=== PATIENT | male | born 1945 | race Caucasian/White ===

== ENCOUNTER 2016-08-19 15:40 | Inpatient (IN) | payer OTHER ==
[~2016-08-19] VITALS: Ht 165.1 cm; Wt 66.1 kg
[2016-08-19] VITALS (10 sets, daily range): BP systolic 100–126; BP diastolic 71–82; PULSE 76–105; TEMP 36.8–37.2; O2SAT 90–100; Ht 165.1 cm; Wt 66.1 kg
[~2016-08-19 15:40] MED LIST: ASPEC81 PO; ATOR-24 PO; CLTP PO
[2016-08-19] MEDS ORDERED: NITROGLYCERIN/D5W 100 MCG/ML 500 ML IV STA (15:48)
[2016-08-19] MEDS ORDERED: NITROGLYCERIN/D5W 100 MCG/ML BTL ONE (15:51)
[2016-08-19] MEDS ORDERED: FUROSEMIDE 40 MG/4 ML VIAL IV STA (16:01)
[2016-08-19] MEDS ORDERED: FUROSEMIDE 40 MG/4 ML VIAL ONE (16:02)
--- NOTE | 2016-08-19 16:08 | EMERGENCY ROOM VISIT NOTE ---
History Report prepared by Jaimeibgabrielle: Sebastián Lowe Under the Supervision of: Dr. Savannah Marroquin M.D. First contact with patient: 15:41 Chief Complaint: ALTERED MENTAL STATUS Stated Complaint: AMS, SOB, History of Present Illness The patient is a 71 year old male who presents to the Emergency Room with acute altered mental status that started over 30 minutes prior to arrival. The patient reportedly became altered when he was kayaking, per EMS. He was also short of breath but denies chest pain. Per EMS, the patient was hypoxic and tachycardic en route to the ED. He was started on CPAP. The patient was also started on a Nitro IV drip. EMS notes that the patient was pale, diaphoretic, and cold to touch. The patient reports that he had a previous heart attack and bypass. The patient's states that he appeared fine this morning. She confirms that he had a laparoscopic CABG in [address] [facility]. She does not believe that the patient had a valve replacement. She states that he does not have history of CHF, stroke, or diabetes. Source of History: patient, spouse/significant other, EMS Onset: more than 30 minutes DIRECTOR MUSIC Position: other (global) Quality: other (altered mental status) Timing: other (acute) Associated Symptoms: + diaphoresis, + SOB, No chest pain Review of Systems See HPI for pertinent positives & negatives. A total of 10 systems reviewed and were otherwise negative. Past Medical & Surgical Medical Problems: (1) Ankle fracture (2) SOB (shortness of breath) Family History No pertinent family history Social History Marital Status: Housing Status: lives with family Occupation Status: retired Current/Historical Medications Scheduled Aspirin (Aspirin), 325 MG PO DAILY Atorvastatin (Lipitor), 80 MG PO QPM Cholecalciferol (Vitamin D), 1,000 UNITS PO DAILY Imiquimod (Imiquimod), 1 APPLN TOP UD Lisinopril (Zestril), 10 MG PO QPM Metoprolol Succ (Toprol Xl) (Toprol-Xl ), 100 MG PO DAILY Multiple Vitamin (Multivitamin), 1 TAB PO DAILY Mupirocin 2% (Bactroban 2%), 1 APPLN EXT TID [place]-3 Fatty Acids (Fish Oil), 1,000 MG PO AMPM Allergies Coded Allergies: No Known Allergies (Unverified , 12/08/09) Physical Exam Vital Signs Date Time Temp Pulse Resp B/P (MAP) Pulse Ox O2 Delivery O2 Flow Rate FiO2 08/19/16 16:44 105 33 124/81 99 BiPAP 08/19/16 16:25 110 30 99 08/19/16 16:20 112 37 100 08/19/16 16:15 119 41 100 08/19/16 16:10 117 42 99 08/19/16 16:05 117 33 99 08/19/16 16:00 118 30 98 08/19/16 15:56 131/88 08/19/16 15:55 114 31 97 08/19/16 15:51 120 08/19/16 15:50 118 28 96 08/19/16 15:46 36.5 122 24 137/106 90 CPAP 08/19/16 15:46 90 CPAP 15.0 08/19/16 15:45 137/106 Physical Exam Vital signs reviewed. Noted to be hypertensive and tachycardic. General: Well-appearing male, in no significant distress. HEENT: No scleral icterus, PERRLA, neck supple. Atraumatic. Cardiovascular: Regular rate and rhythm, no extra sounds. Small laparoscopic incision to the suprasternal notch and epigastric region. Pulmonary: On BiPAP, diffuse rhonchi throughout all lung thakur. Abdomen: Soft, nontender, nondistended, positive bowel sounds. Vertical midline incisions to the lower abdomen. Musculoskeletal: Atraumatic, no peripheral edema. Neurologic: Patient awake alert and oriented x 3 Skin: Warm, dry, no rash Medical Decision & Procedures ER Provider Diagnostic Interpretation: X-ray results as stated below per interpretation by me and the radiologist: Radiology results as stated below per my review and radiologist interpretation: CT ANGIOGRAM OF THE CHEST COMBO CLINICAL HISTORY: Dyspnea. COMPARISON STUDY: Chest x-ray dated 08/19/2016. TECHNIQUE: Before and following the IV administration of 115 cc of Optiray 320, CT angiogram of the chest was performed from the thoracic inlet to the upper abdomen utilizing the dissection protocol. Images are reviewed in the axial, sagittal, and coronal planes. 3-D MIPS images are created and assessed. IV contrast was administered without complication. CT DOSE: 277.18 mGy.cm FINDINGS: Thyroid: Atrophic. Thoracic aorta: There is mild atherosclerotic calcification of the thoracic aorta, which is normal in caliber and demonstrates standard 3-vessel arch anatomy. No dissection is seen. Pulmonary vasculature: The pulmonary trunk is normal in caliber. There are no central filling defects identified in the pulmonary vessels to suggest pulmonary embolus. Note that this examination was not specifically protocoled to assess for pulmonary emboli. Heart: The heart is top mildly enlarged and without pericardial effusion. The coronary arteries are densely calcified. Lungs and pleural spaces: The trachea and central airways are clear. There is diffuse/multifocal groundglass consolidation seen throughout both lungs, confluent at the left lung base. There are trace pleural effusions. Mediastinum: There is no mediastinal lymphadenopathy. Kaylen: Clear. Axillae: There is no axillary lymphadenopathy. Upper abdomen: There is mild nodularity of the hepatic surface contour Partially visualized upper abdominal viscera is otherwise within normal limits. Skeletal structures: The skeletal structures are osteopenic. No lytic or blastic bony lesions are seen. IMPRESSION: 1. There is no evidence of pulmonary embolus in the main, lobar, or segmental pulmonary arteries. 2. There is diffuse/multifocal groundglass consolidation seen throughout both lungs which is confluent at the left lung base. This could represent pulmonary edema, multifocal pneumonia, and/or pulmonary hemorrhage. Clinical correlation will be essential and radiographic follow-up to resolution is recommended. 3. Mild cardiac enlargement. 4. Trace pleural effusions. 5. There is mild nodularity of the hepatic surface contour which may represent early change of cirrhosis. 6. Additional findings as above. Electronically signed by: Blayne Perez M.D. 08/19/2016 6:49 PM Dictated Date/Time: 08/19/2016 6:[address] SCAN OF THE BRAIN WITHOUT IV CONTRAST CLINICAL HISTORY: Change in mental status. COMPARISON STUDY: No priors. TECHNIQUE: Unenhanced axial CT scan of the brain is performed from the vertex to the skull base. CT DOSE: 537.48 mGy.cm FINDINGS: Brain parenchyma: There are age-related involutional changes noting mild subcortical and periventricular microangiopathic change. There is no hemorrhage, mass effect, or evidence of acute territorial ischemia by CT criteria. Ramirez-white matter is preserved. No extra-axial fluid collection is seen. Ventricles, sulci, cisterns: Prominent secondary to involutional change. Intracranial vasculature: There is atherosclerotic calcification of the cavernous carotid arteries. Calvarium: Unremarkable. Sinuses and mastoids: The visualized paranasal sinuses are clear. The mastoid air cells are well pneumatized. Orbits: The bony orbits are grossly intact. IMPRESSION: There is no hemorrhage, mass effect, or evidence of acute territorial ischemia by CT criteria. Electronically signed by: Blayne Perez M.D. 08/19/2016 6:40 PM Dictated Date/Time: 08/19/2016 6:38 PM SINGLE VIEW CHEST CLINICAL HISTORY: Dyspnea. Change in mental status. FINDINGS: An AP, portable, upright chest radiograph is obtained. No prior studies are available for comparison at the time of dictation. The examination is degraded by portable technique and patient rotation. The heart is enlarged and there is atherosclerotic calcification of the thoracic aorta. There is pulmonary vascular congestion. Bilateral perihilar airspace opacities are observed. Small pleural effusions are suspected. No pneumothorax is seen. The skeletal structures are osteopenic. The bony thorax is grossly intact. IMPRESSION: 1. Cardiomegaly with evidence of congestive failure. 2. Perihilar airspace opacities likely represent interstitial edema. Correlate clinically for evidence of superimposed pneumonia. Radiographic follow-up to resolution is recommended. Electronically signed by: Blayne Perez M.D. 08/19/2016 4:09 PM Dictated Date/Time: 08/19/2016 4:08 PM Laboratory Results Test 08/19/16 16:00 08/19/16 16:03 08/19/16 16:08 08/19/16 16:10 Immature Granulocyte % (Auto) 0.9 % White Blood Count 8.79 K/uL (4.8-10.8) Red Blood Count 5.48 M/uL (4.7-6.1) Hemoglobin 16.9 g/dL (14.0-18.0) Hematocrit 51.4 % (42-52) Mean Corpuscular Volume 93.8 fL (80-100) Mean Corpuscular Hemoglobin 30.8 pg (25-34) Mean Corpuscular Hemoglobin Concent 32.9 g/dl (32-36) Platelet Count 193 K/uL (130-400) Mean Platelet Volume 12.1 fL (7.4-10.4) Neutrophils (%) (Auto) 65.3 % Lymphocytes (%) (Auto) 24.7 % Monocytes (%) (Auto) 7.2 % Eosinophils (%) (Auto) 1.6 % Basophils (%) (Auto) 0.3 % Neutrophils # (Auto) 5.74 K/uL (1.4-6.5) Lymphocytes # (Auto) 2.17 K/uL (1.2-3.4) Monocytes # (Auto) 0.63 K/uL (0.11-0.59) Eosinophils # (Auto) 0.14 K/uL (0-0.5) Basophils # (Auto) 0.03 K/uL (0-0.2) Immature Granulocyte # (Auto) 0.08 K/uL (0.00-0.02) Bedside Blood Gas pH (LAB) 7.15 (7.35-7.45) Bedside Blood Gas pCO2 (LAB) 51 mmHg (35-46) Bedside Blood Gas pO2 (LAB) 111 mmHg (80-95) Bedside Blood Gas HCO3 (LAB) 18 meq/L (19-24) Bedside Blood Gas Total CO2 19 mEq/l (24-31) Bedside Blood Gas Base Excess (LAB) -11.0 meq/L (-9-1.8) Bedside Blood Gas O2 Saturation 97.0 % (90-95) Total Creatine Kinase U/L (39-308) Bedside Hemoglobin 17.0 g/dl (14.0-18.0) Bedside Hematocrit 50 % (42-52) Bedside Sodium 140 mEq/L (135-144) Bedside Potassium 3.9 mEq/L (3.3-5.0) Bedside Chloride 105 mEq/L (101-112) Bedside Total CO2 20 mEq/l (24-31) Bedside Blood Urea Nitrogen 27 mg/dl (7-18) Bedside Creatinine 1.3 mg/dl (0.6-1.3) Bedside Glucose (other) 206 mg/dl (70-99) Bedside Ionized Calcium (Kermit) 1.27 mmol/l (1.12-1.32) Bedside Troponin I 0.070 ng/ml (0-0.045) IQ-Mos-U-Type Natriuretic Peptide 210 pg/ml (0-900) Bedside Lactic Acid Venous 6.14 mmol/L (0.90-1.70) Date/Time Source Procedure Growth Status 08/19/16 00:00 Nasal MRSA DNA Surveillance Screen - Final Specimen Negative for MRSA by DNA Probe Complete Laboratory results per my review. Medications Administered Medications (Trade) Dose Ordered Sig/Micheal Route Start Time Stop Time Status Last Admin Dose Admin Nitroglycerin/ Dextrose 500 ml @ 5 mls/hr Q24H STAT IV 08/19/16 15:48 08/19/16 19:30 DC 08/19/16 16:15 5 MLS/HR Furosemide (Lasix Inj) 40 mg NOW STAT IV 08/19/16 16:01 08/19/16 16:02 DC 08/19/16 16:12 40 MG Piperacillin Sod/ Tazobactam Sod (Zosyn Iv) 4.5 gm NOW STAT IV 08/19/16 16:24 08/19/16 16:26 DC 08/19/16 16:49 4.5 GM Levofloxacin (Levaquin / D5W) 750 mg NOW ONCE IV 08/19/16 16:30 08/19/16 16:31 DC 08/19/16 16:49 750 MG ECG Indication: altered mental status Rate (beats per minute): 121 Rhythm: sinus tachycardia Findings: no ectopy, other (right axis deviation, no ST elevation, intraventricular conduction delay) Comparison ECG Date: no prior available ED Course 1542: Past medical records reviewed. The patient was evaluated in room A1. A complete history and physical examination was performed. 1548: Nitroglycerin / Dextrose 500 ml @ 5 mls/hr. 1601: Lasix 40 mg IV. 1615: Discussed the case with Dr. Cardoso, [facility] Hospitalist. The patient will be evaluated. 1621: Discussed the case with Dr. Hair, Return To Service Inspector. She is aware of the case. 1800: Past medical records obtained from patient's primary doctor's office. The patient has history of BPH, hypertension, anemia, coronary artery disease, carpal tunnel, left ankle fracture, diverticulosis, hyperlipidemia, and mitral regurgitation. The patient had LBBB on old EKG. Medical Decision Differential diagnosis: Etiologies such as infections, reactive airway disease, pneumonia, pneumothorax , COPD, CHF, cardiac ischemia, pulmonary embolism, musculoskeletal, gastrointestinal, as well as others were entertained. Blood Pressure Screening: Patient was found to have normal blood pressure on screening and does not require follow-up. Medication Reconciliation: I attest that I have personally reviewed the patient' s current medication list. This pt was evaluated and appeared to be critically ill. Pt was on CPAP by EMS and NTG gtt. Pt had significant improvement clinically. CXR was performed and is significant for CHF. IV access was obtained and lab work was drawn. Pt was continued on NTG gtt and placed on BiPAP. EKG reveals a L BBB/intraventricular conduction delay. Trop is mildly elevated. Pt has h/o CABG and LBBB according to records. There is no previous EKG available. The ABG obtained reveals an acidosis with pH of 7.15, pCO2 51, and HCO3 18. Lactate is elevated. CT head is negative, CTA chest is neg for PE, otherwise as above. IV zosyn and levaquin were started, blood cultures pending. Case was d/w Dr Hair of the ICU. Pt was referred to the hospitalist service. Pt and are aware of the plan and agree. Consults Time Called: 1610 Consulting Physician: Dr. Cardoso [facility] Hospitalist Returned Call: 1615 The patient will be evaluated. Additional Consults: Time Called: 1620 Consulted Physician: Dr. Hair, Return To Service Inspector. Returned Call: 1621 Additional Comments: She is aware of the case. Impression Primary Impression: Pulmonary edema Additional Impressions: Lactic acidosis Respiratory acidosis Critical Care I have personally spent greater than 35 minutes of critical care time in the direct management of this patient. This includes bedside care, interpretation of diagnostic studies, and testing, discussion with consultants, patient, and family members, and other required patient management activities. This 35 minutes is in excess of all separately billable procedures. Scribe Attestation The scribe's documentation has been prepared under my direction and personally reviewed by me in its entirety. I confirm that the note above accurately reflects all work, treatment, procedures, and medical decision making performed by me. Departure Information Dispostion Being Evaluated By Hospitalist Referrals No Doctor, Assigned (PCP) Patient Instructions My [facility] Problem Qualifiers Primary Impression: Pulmonary edema Chronicity: acute Qualified Codes: J81.0 - Acute pulmonary edema
[2016-08-19 16:13] LABS: ISTAT ARTERIAL BLOOD GAS HCO3 18 meq/L (19-24); ISTAT ARTERIAL BLOOD GAS PCO2 51 mmHg (35-46); ISTAT ARTERIAL BLOOD GAS PO2 111 mmHg (80-95); ISTAT ARTERIAL BLOOD GAS pH 7.15 (7.35-7.45); ISTAT CARBON DIOXIDE 19 mEq/l (24-31)
[2016-08-19] MEDS ORDERED: INSULIN IV INFUSION PROTOCOL STA (16:19)
[2016-08-19 16:24] LABS: ISTAT CREATININE 1.3 mg/dl (0.6-1.3); ISTAT IONIZED CALCIUM 1.27 mmol/l (1.12-1.32)
[2016-08-19] MEDS ORDERED: PIPERACILLIN/TAZOBACTAM 4.5 GM/100ML D5W IV STA (16:24)
[2016-08-19 16:26] LABS: BASO % 0.3 %; BASO ABS # 0.03 K/uL (0-0.2); COMPLETE YES; EOS % 1.6 %; HEMATOCRIT 51.4 % (42-52); IG% 0.9 %; LYMPH % 24.7 %; LYMPH ABS # 2.17 K/uL (1.2-3.4); MEAN CELL VOLUME 93.8 fL (80-100); MEAN CORPUSCULAR HEMOGLOBIN 30.8 pg (25-34); MEAN CORPUSCULAR HGB CONC 32.9 g/dl (32-36); MEAN PLATELET VOLUME 12.1 fL (7.4-10.4); MONO % 7.2 %; NEUT % 65.3 %; PLATELET COUNT 193 K/uL (130-400); RED BLOOD COUNT 5.48 M/uL (4.7-6.1); WHITE BLOOD COUNT 8.79 K/uL (4.8-10.8)
[2016-08-19 16:28] LABS: POINT OF CARE TROPONIN I 0.07 ng/ml (0-0.045)
[2016-08-19] MEDS ORDERED: HEPARIN SOD 5000 UNIT/0.5 ML CARP SQ SCH (16:30)
[2016-08-19] MEDS ORDERED: ACETAMINOPHEN 325 MG TAB PO PRN (16:30)
[2016-08-19] MEDS ORDERED: ALBUT/IPRATROP 3MG/0.5MG NEB 3 ML VIAL INH PRN (16:30)
[2016-08-19] MEDS ORDERED: LEVAQUIN 750MG / 150ML D5W IV ONE (16:30)
[2016-08-19 16:54] LABS: ALKALINE PHOSPHATASE 192 U/L (45-117); ALT/SGPT 118 U/L (12-78); BLOOD UREA NITROGEN 26 mg/dl (7-18); BUN/CREATININE RATIO 17.3 (10-20); CALCIUM 9.4 mg/dl (8.5-10.1); CARBON DIOXIDE 21 mmol/L (21-32); CHLORIDE 106 mmol/L (98-107); GLUCOSE 189 mg/dl (70-99); SODIUM 141 mmol/L (136-145)
[2016-08-19] MEDS ORDERED: ONDANSETRON INJ 2 MG/ML 2 ML VIAL IV PRN (17:30)
[2016-08-19] MEDS ORDERED: CHOL100010 PO (17:32)
[2016-08-19] MEDS ORDERED: BCTCR/30 EXT (17:32)
[2016-08-19] MEDS ORDERED: VANCOMYCIN CONSULT ACTIVE PRN (17:32)
[2016-08-19] MEDS ORDERED: ATOR-26 PO (17:32)
[2016-08-19] MEDS ORDERED: DXY100 PO (17:32)
[2016-08-19] MEDS ORDERED: ASPI325T45 PO (17:32)
[2016-08-19] MEDS ORDERED: OMEG10002 PO (17:32)
[2016-08-19] MEDS ORDERED: MULTTAB58 PO (17:32)
[2016-08-19] MEDS ORDERED: METO1TAB69 PO (17:32)
[2016-08-19] MEDS ORDERED: LISI-461 PO (17:32)
[2016-08-19] MEDS ORDERED: IMIQ0.00 TOP (17:32)
[2016-08-19] MEDS ORDERED: GLUCAGON FOR INJ 1 MG VIAL SQ PRN (17:45)
[2016-08-19] MEDS ORDERED: DOXYCYCLINE PHARMACY CONSULT IN PROGRESS PRN (17:45)
[2016-08-19] MEDS ORDERED: GLUCOSE 40% GEL 15 GM TUBE PO PRN (17:45)
[2016-08-19] MEDS ORDERED: DEXTROSE 50% 50 ML SYR IV PRN (17:45)
[2016-08-19] MEDS ORDERED: PHARMACY GLYCEMIC MGMT CONSULT PRN (17:45)
[2016-08-19] MEDS ORDERED: GLUCOSE 10 TABS/TUBE PO PRN (17:45)
[2016-08-19] MEDS ORDERED: PIPERACILL/TAZOBAC CONSULT ACTIVE PRN (17:45)
--- NOTE | 2016-08-19 17:46 | History and Physical ---
History & Physical Date & Time of Service: Aug 19, 2016 at 17:35 Chief Complaint: Ams, Sob, Primary Care Physician: No Doctor, Assigned History of Present Illness Source: patient, family Patient is a 71 yr male with PMH of CAD S/P ? CABG (in 2013), HLP, HTN presents for evaluation of Altered mental status and SOB. Patient reports he is doing well until this morning and developed sudden onset of shortness of breath and cough associated with Altered mental status while he was kayaking. EMS found him to be hypoxic and tachycardic/Hypertensive and started him on NTG drip and CPAP enroute to the hospital. EMS also noted the patient to be pale, diaphoretic , and cold to touch. Patient reports he developed sudden onset of SOB and a "foamy" cough. Also reports transient slurry of speech and stumbled to walk per family. He denies any history of chest pain/discomfort, fever, chills, palpitations, dizziness, nausea, vomiting, abd pain, change in bowel/bladder habits, history of LOC, fall, trauma, headache, blurry vision, weakness, numbness, tingling, seizure like activity, incontinence. Also denies any cough prior to today or similar episode previously. CXR was suggestive of CHF, interstitial edema and possible pneumonia. Lactic acid is elevated. Past Medical/Surgical History Medical Problems: (1) Ankle fracture Status: Resolved PAST SURGICAL HISTORY: ? CABG, Appendectomy Family History No pertinent family history Mother and Father: Heart disease Social History Smoking Status: Never Smoker Alcohol Use: socially Drug Use: none Marital Status: Allergies Coded Allergies: No Known Allergies (Unverified , 12/08/09) Home Medications Scheduled Aspirin (Aspirin), 325 MG PO DAILY Atorvastatin (Lipitor), 80 MG PO QPM Cholecalciferol (Vitamin D), 1,000 UNITS PO DAILY Imiquimod (Imiquimod), 1 APPLN TOP UD Lisinopril (Zestril), 10 MG PO QPM Metoprolol Succ (Toprol Xl) (Toprol-Xl ), 100 MG PO DAILY Multiple Vitamin (Multivitamin), 1 TAB PO DAILY Mupirocin 2% (Bactroban 2%), 1 APPLN EXT TID [place]-3 Fatty Acids (Fish Oil), 1,000 MG PO AMPM Review of Systems See HPI for pertinent positives & negatives. A total of 10 systems reviewed and were otherwise negative. Physical Exam Vital Signs Date Time Temp Pulse Resp B/P (MAP) Pulse Ox O2 Delivery O2 Flow Rate FiO2 08/19/16 16:44 105 33 124/81 99 BiPAP 08/19/16 16:25 110 30 99 08/19/16 16:20 112 37 100 08/19/16 16:15 119 41 100 08/19/16 16:10 117 42 99 08/19/16 16:05 117 33 99 08/19/16 16:00 118 30 98 08/19/16 15:56 131/88 08/19/16 15:55 114 31 97 08/19/16 15:51 120 08/19/16 15:50 118 28 96 08/19/16 15:46 36.5 122 24 137/106 90 CPAP 08/19/16 15:46 90 CPAP 15.0 08/19/16 15:45 137/106 General Appearance: WD/WN, no apparent distress Head: normocephalic, atraumatic Eyes: normal inspection, PERRL, EOMI, sclerae normal ENT: normal ENT inspection, hearing grossly normal Neck: supple, trachea midline Respiratory/Chest: chest non-tender, no accessory muscle use, + rales Cardiovascular: regular rate, rhythm, no murmur, + tachycardia Abdomen/GI: normal bowel sounds, non tender, soft Back: normal inspection Extremities/Musculoskelatal: normal inspection, no pedal edema Neurologic/Psych: caul dresser II-XII nml as tested, no motor/sensory deficits, alert, normal mood/affect, oriented x 3 Skin: normal color, warm/dry Diagnostics Laboratory Results Results Past 24 Hours Test 08/19/16 15:58 08/19/16 16:00 08/19/16 16:03 08/19/16 16:08 Range/Units Bedside Lactic Acid Venous 7.12 0.90-1.70 mmol/L White Blood Count 8.79 4.8-10.8 K/uL Red Blood Count 5.48 4.7-6.1 M/uL Hemoglobin 16.9 14.0-18.0 g/dL Hematocrit 51.4 42-52 % Mean Corpuscular Volume 93.8 80-100 fL Mean Corpuscular Hemoglobin 30.8 25-34 pg Mean Corpuscular Hemoglobin Concent 32.9 32-36 g/dl Platelet Count 193 130-400 K/uL Mean Platelet Volume 12.1 7.4-10.4 fL Neutrophils (%) (Auto) 65.3 % Lymphocytes (%) (Auto) 24.7 % Monocytes (%) (Auto) 7.2 % Eosinophils (%) (Auto) 1.6 % Basophils (%) (Auto) 0.3 % Neutrophils # (Auto) 5.74 1.4-6.5 K/uL Lymphocytes # (Auto) 2.17 1.2-3.4 K/uL Monocytes # (Auto) 0.63 0.11-0.59 K/uL Eosinophils # (Auto) 0.14 0-0.5 K/uL Basophils # (Auto) 0.03 0-0.2 K/uL RDW Standard Deviation 44.1 36.4-46.3 fL RDW Coefficient of Variation 12.8 11.5-14.5 % Immature Granulocyte % (Auto) 0.9 % Immature Granulocyte # (Auto) 0.08 0.00-0.02 K/uL Bedside Blood Gas pH (LAB) 7.15 7.35-7.45 Bedside Blood Gas pCO2 (LAB) 51 35-46 mmHg Bedside Blood Gas pO2 (LAB) 111 80-95 mmHg Bedside Blood Gas HCO3 (LAB) 18 19-24 meq/L Bedside Blood Gas Total CO2 19 24-31 mEq/l Bedside Blood Gas Base Excess (LAB) -11.0 -9-1.8 meq/L Bedside Blood Gas O2 Saturation 97.0 90-95 % Sodium Level 141 136-145 mmol/L Potassium Level 3.5-5.1 mmol/L Chloride Level 106 98-107 mmol/L Carbon Dioxide Level 21 21-32 mmol/L Anion Gap 14.0 19.0 16-25 mmol/L Blood Urea Nitrogen 26 7-18 mg/dl Creatinine 1.50 0.60-1.40 mg/dl Est Creatinine Clear Calc Drug Dose 46.7 ml/min Estimated GFR () 53.5 Estimated GFR (Non- 46.2 BUN/Creatinine Ratio 17.3 10-20 Random Glucose 189 70-99 mg/dl Calcium Level 9.4 8.5-10.1 mg/dl Magnesium Level 1.8-2.4 mg/dl Total Bilirubin 0.5 0.2-1 mg/dl Direct Bilirubin 0-0.2 mg/dl Aspartate Amino Transf (AST/SGOT) 15-37 U/L Alanine Aminotransferase (ALT/SGPT) 118 12-78 U/L Alkaline Phosphatase 192 45-117 U/L Total Creatine Kinase 39-308 U/L Creatine Kinase MB 2.9 0.5-3.6 ng/ml Creatine Kinase MB Ratio 0-3.0 Total Protein 7.8 6.4-8.2 gm/dl Albumin 3.9 3.4-5.0 gm/dl Bedside Hemoglobin 17.0 14.0-18.0 g/dl Bedside Hematocrit 50 42-52 % Bedside Sodium 140 135-144 mEq/L Bedside Potassium 3.9 3.3-5.0 mEq/L Bedside Chloride 105 101-112 mEq/L Bedside Total CO2 20 24-31 mEq/l Bedside Blood Urea Nitrogen 27 7-18 mg/dl Bedside Creatinine 1.3 0.6-1.3 mg/dl Bedside Glucose (other) 206 70-99 mg/dl Bedside Ionized Calcium (Kermit) 1.27 1.12-1.32 mmol/l Bedside Troponin I 0.070 0-0.045 ng/ml ER-Ivf-X-Type Natriuretic Peptide 210 0-900 pg/ml Test 08/19/16 16:10 Range/Units Bedside Lactic Acid Venous 6.14 0.90-1.70 mmol/L Microbiology Results 08/19/16 Blood Culture, Received Pending 08/19/16 Blood Culture, Aminta Batch Pending Diagnostic Radiology CTA: 1. There is no evidence of pulmonary embolus in the main, lobar, or segmental pulmonary arteries. 2. There is diffuse/multifocal groundglass consolidation seen throughout both lungs which is confluent at the left lung base. This could represent pulmonary edema, multifocal pneumonia, and/or pulmonary hemorrhage. Clinical correlation will be essential and radiographic follow-up to resolution is recommended. 3. Mild cardiac enlargement. 4. Trace pleural effusions. 5. There is mild nodularity of the hepatic surface contour which may represent early change of cirrhosis. 6. Additional findings as above. CT head: There is no hemorrhage, mass effect, or evidence of acute territorial ischemia by CT criteria. EKG EKG:Sinus tachycardia, left atrial enlargement, intraventricular conduction delay, no acute ischemic changes. Impression Assessment and Plan Acute hypoxemic respiratory failure: Likely secondary to Pulmonary edema, ? Multifocal pneumonia, ACS CTA: negative for PE Continue BiPAP support Will consult Tree Trimmer and Pulmonary on NTG drip, also to help Hypertensive urgency (started en route to Hosp) Start broad spectrum antibiotics Duonebs PRN ABG in AM Could have underlying cardiac issues: check ECHO, trend cardiac enzymes Plan to start Heparin infusion and cardiology consult if complains of chest pain /cardiac enzymes trend up Trend lactate levels Follow up cultures Received Lasix in ED Hypertensive Urgency: Now controlled on NTG drip Monitor Hyperglycemia: No history of diabetes per patient Check A1C ISS, accu checks ? transient slurred speech and altered mental status: Currently at baseline mental status No focal deficits on exam CT : no acute pathology Neuro checks H/O CAD S/P minimally invasive coronary artery bypass grafting surgery 2013 Denies chest pain Trend cardiac enzymes continue home meds H/O hyperlipidemia Continue statins DVT PX: Heparin SQ Disposition: Monitor in ICU VTE Prophylaxis VTE Risk Assessment Done? Y/N: Yes Risk Level: Low
[2016-08-19] MEDS ORDERED: NURSING VERBAL MED ORDER ONE (18:00)
[2016-08-19] MEDS: INSULIN ASPART 100 UNITS/ML 3 ML PEN SC SCH (18:00)
[2016-08-19] MEDS ORDERED: VANCOMYCIN INJ 2,000 MG in SODIUM CHLORIDE 0.9% 500ML 500 ML IV SCH (18:00)
--- NOTE | 2016-08-19 18:41 | DIAGNOSTIC IMAGING REPORT ---
CT SCAN OF THE BRAIN WITHOUT IV CONTRAST CLINICAL HISTORY: Change in mental status. COMPARISON STUDY: No priors. TECHNIQUE: Unenhanced axial CT scan of the brain is performed from the vertex to the skull base. CT DOSE: 537.48 mGy.cm FINDINGS: Brain parenchyma: There are age-related involutional changes noting mild subcortical and periventricular microangiopathic change. There is no hemorrhage, mass effect, or evidence of acute territorial ischemia by CT criteria. Ramirez-white matter is preserved. No extra-axial fluid collection is seen. Ventricles, sulci, cisterns: Prominent secondary to involutional change. Intracranial vasculature: There is atherosclerotic calcification of the cavernous carotid arteries. Calvarium: Unremarkable. Sinuses and mastoids: The visualized paranasal sinuses are clear. The mastoid air cells are well pneumatized. Orbits: The bony orbits are grossly intact. IMPRESSION: There is no hemorrhage, mass effect, or evidence of acute territorial ischemia by CT criteria. Electronically signed by: Blayne Perez M.D. 08/19/2016 6:40 PM Dictated Date/Time: 08/19/2016 6:38 PM
[2016-08-19] MEDS ORDERED: OPTIRAY 320 IV PRN (18:45)
--- NOTE | 2016-08-19 18:50 | DIAGNOSTIC IMAGING REPORT ---
CT ANGIOGRAM OF THE CHEST COMBO CLINICAL HISTORY: Dyspnea. COMPARISON STUDY: Chest x-ray dated 08/19/2016. TECHNIQUE: Before and following the IV administration of 115 cc of Optiray 320, CT angiogram of the chest was performed from the thoracic inlet to the upper abdomen utilizing the dissection protocol. Images are reviewed in the axial, sagittal, and coronal planes. 3-D MIPS images are created and assessed. IV contrast was administered without complication. CT DOSE: 277.18 mGy.cm FINDINGS: Thyroid: Atrophic. Thoracic aorta: There is mild atherosclerotic calcification of the thoracic aorta, which is normal in caliber and demonstrates standard 3-vessel arch anatomy. No dissection is seen. Pulmonary vasculature: The pulmonary trunk is normal in caliber. There are no central filling defects identified in the pulmonary vessels to suggest pulmonary embolus. Note that this examination was not specifically protocoled to assess for pulmonary emboli. Heart: The heart is top mildly enlarged and without pericardial effusion. The coronary arteries are densely calcified. Lungs and pleural spaces: The trachea and central airways are clear. There is diffuse/multifocal groundglass consolidation seen throughout both lungs, confluent at the left lung base. There are trace pleural effusions. Mediastinum: There is no mediastinal lymphadenopathy. Kaylen: Clear. Axillae: There is no axillary lymphadenopathy. Upper abdomen: There is mild nodularity of the hepatic surface contour Partially visualized upper abdominal viscera is otherwise within normal limits. Skeletal structures: The skeletal structures are osteopenic. No lytic or blastic bony lesions are seen. IMPRESSION: 1. There is no evidence of pulmonary embolus in the main, lobar, or segmental pulmonary arteries. 2. There is diffuse/multifocal groundglass consolidation seen throughout both lungs which is confluent at the left lung base. This could represent pulmonary edema, multifocal pneumonia, and/or pulmonary hemorrhage. Clinical correlation will be essential and radiographic follow-up to resolution is recommended. 3. Mild cardiac enlargement. 4. Trace pleural effusions. 5. There is mild nodularity of the hepatic surface contour which may represent early change of cirrhosis. 6. Additional findings as above. Electronically signed by: Blayne Perez M.D. 08/19/2016 6:49 PM Dictated Date/Time: 08/19/2016 6:42 PM
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
[2016-08-19] MEDS ORDERED: MoRPHine SULFATE 2 MG/ML CARP IV PRN (19:30)
--- NOTE | 2016-08-19 19:53 | Pharmacy Progress Note ---
Pharmacy Abx Initial Consult Date of Service Aug 19, 2016. Pharmacy Dosing Scope Date of Consult: 08/19/16 Consultation requested by: Dr. Cardoso Pharmacy is consulted to initiate vancomycin and piperacillin/tazobactam IV dosing therapy, order appropriate labs and adjust drug dose/frequency. Subjective The patient is a 71 year old male admitted on Aug 19, 2016 at 17:15. Objective Height (Feet): 5 Height (Inches): 5.00 Weight (Kilograms): 90.300 Vital Signs (Past 12Hrs) Vital Signs Past 12 Hours Date Time Temp Pulse Resp B/P (MAP) Pulse Ox O2 Delivery O2 Flow Rate FiO2 08/19/16 19:07 105 100 60 08/19/16 18:49 37.2 94 22 119/82 100 BiPAP 08/19/16 18:00 95 28 115/82 99 Room Air 08/19/16 17:20 90 90 08/19/16 16:44 105 33 124/81 99 BiPAP 08/19/16 16:25 110 30 99 08/19/16 16:20 112 37 100 08/19/16 16:15 119 41 100 08/19/16 16:10 117 42 99 08/19/16 16:05 117 33 99 08/19/16 16:00 118 30 98 08/19/16 15:56 131/88 08/19/16 15:55 114 31 97 08/19/16 15:51 120 08/19/16 15:50 118 28 96 08/19/16 15:46 36.5 122 24 137/106 90 CPAP 08/19/16 15:46 90 CPAP 15.0 08/19/16 15:45 137/106 Lab Results (24Hrs) Laboratory Tests (24 Hours) Test 08/19/16 16:00 08/19/16 17:10 White Blood Count 8.79 K/uL (4.8-10.8) Red Blood Count 5.48 M/uL (4.7-6.1) Hemoglobin 16.9 g/dL (14.0-18.0) Hematocrit 51.4 % (42-52) Mean Corpuscular Volume 93.8 fL (80-100) Mean Corpuscular Hemoglobin 30.8 pg (25-34) Mean Corpuscular Hemoglobin Concent 32.9 g/dl (32-36) Platelet Count 193 K/uL (130-400) Mean Platelet Volume 12.1 fL (7.4-10.4) H Neutrophils (%) (Auto) 65.3 % Lymphocytes (%) (Auto) 24.7 % Monocytes (%) (Auto) 7.2 % Eosinophils (%) (Auto) 1.6 % Basophils (%) (Auto) 0.3 % Neutrophils # (Auto) 5.74 K/uL (1.4-6.5) Lymphocytes # (Auto) 2.17 K/uL (1.2-3.4) Monocytes # (Auto) 0.63 K/uL (0.11-0.59) H Eosinophils # (Auto) 0.14 K/uL (0-0.5) Basophils # (Auto) 0.03 K/uL (0-0.2) Total Creatine Kinase U/L (39-308) Procalcitonin 0.19 ng/ml (0-0.5) Item Value Date Time Bedside Lactic Acid Venous 6.14 mmol/L H 08/19/16 1610 Bedside Lactic Acid Venous 7.12 mmol/L H 08/19/16 1558 Est Creatinine Clear Calc Drug Dose 46.7 ml/min 08/19/16 1600 Creatinine 1.50 mg/dl H 08/19/16 1600 Micro Results Date/Time Source Procedure Growth Status 08/19/16 17:59 Blood Blood Culture Pending Received 08/19/16 16:00 Blood Blood Culture Pending Received 08/19/16 00:00 Nasal MRSA DNA Surveillance Screen Pending Received Risk Factors for Resistance * Antimicrobial use within the last 90 days * doxycycline 3-4 weeks ago for tick bite Assessment & Plan Assessment * 71 year old male [place] and becoming short of breath and having changes in mental status * Levofloxacin and piperacillin/tazobactam given in ED * Lactic acid elevated on admission; procalcitonin, WBC, neutrophils WNL Plan * Broad-spectrum antibiotics for treatment of possible pneumonia Vancomycin IV * Loading dose: 2000 mg (22 mg/kg) * Random level 08/20/16 in AM * Serum creatinine likely elevated above baseline. * This, in addition to piperacillin/tazobactam as well as IV contrast dye, is concerning for additional renal dysfunctions - would like to assess renal function in AM prior to scheduling maintenance dose. * MRSA nasal swab pending Piperacillin/tazobactam * 4.5 g bolus administered over 30 minutes, then 4.5 g IV extended infusion every 8 hours for CrCl greater than 20 mL/min O * Aggressive dosing selected due to critically ill status Pharmacy will continue to follow and will adjust dose/frequency as necessary. Thank you.
--- NOTE | 2016-08-19 19:59 | Pharmacy Progress Note ---
Glycemic Control Intl Consult Date of Service Aug 19, 2016. Scope Glycemic Pharmacist consulted by Dr Cardoso on for glycemic control and to write orders per [facility] inpatient glycemic control protocol Objective Weight (Kilograms): 90.300 Accuchecks BSG (last 24hrs): Test 08/19/16 16:00 Random Glucose 189 mg/dl (70-99) Laboratory Data (last 24hrs) Test 08/19/16 16:00 08/19/16 16:03 Anion Gap 14.0 mmol/L 19.0 mmol/L BUN/Creatinine Ratio 17.3 Blood Urea Nitrogen 26 mg/dl Creatinine 1.50 mg/dl Potassium Level mmol/L Sodium Level 141 mmol/L White Blood Count 8.79 K/uL Red Blood Count 5.48 M/uL Hemoglobin 16.9 g/dL Hematocrit 51.4 % Mean Corpuscular Volume 93.8 fL Mean Corpuscular Hemoglobin 30.8 pg Mean Corpuscular Hemoglobin Concent 32.9 g/dl Platelet Count 193 K/uL Mean Platelet Volume 12.1 fL Neutrophils (%) (Auto) 65.3 % Lymphocytes (%) (Auto) 24.7 % Monocytes (%) (Auto) 7.2 % Eosinophils (%) (Auto) 1.6 % Basophils (%) (Auto) 0.3 % Neutrophils # (Auto) 5.74 K/uL Lymphocytes # (Auto) 2.17 K/uL Monocytes # (Auto) 0.63 K/uL Eosinophils # (Auto) 0.14 K/uL Basophils # (Auto) 0.03 K/uL Recent Pertinent Medications Outpatient Anti-diabetic Regimen: * none prior to admission * A1c is unknown at time of consult The patient is currently receiving: * nothing Risk Factors for Insulin Resistance: * Infection: presumed pneumonia - vancomycin and piperacillin/tazobactam IV * Diet: NPO except medications Assessment & Plan ASSESSMENT: * ADA & AACE recommend a goal blood sugar range 140-180 mg/dl for the majority of critically ill & non-critically ill patients. * No history of diabetes, however BSG elevated on admission (secondary to physiologic stress vs undiagnosed dx?) * familial history of DM * begin NovoLog correctional insulin at this time (based on weight and a stress of 2), forgo basal insulin unless sustained hyperglycemia occurs * A1c ordered with AM labs on7/3/17 PLAN FOR INPATIENT GLYCEMIC CONTROL: * Basal insulin: * hold at this time * Bolus insulin: * NovoLog SQ every 6 hours - Correction factor: 25mg/dL/unit - Carb ratio: 1 unit per 9 g of CHO consumed - Goal range: 140-180mg/dL * A1c - with AM labs * added to discharge instructions * Please note that the plan above was derived based on current level of insulin resistance and hospital stress. These recommendations are appropriate for inpatient admission only. Plan of care upon discharge will need to be reassessed to avoid potential outpatient hypo/hyperglycemia. Thank you.
[2016-08-19] MEDS ORDERED: DOXYCYCLINE HYCLATE 100 MG in DEXTROSE 5% 100ML IV SCH (20:00)
[2016-08-19 20:34] LABS: INR 1.1 (0.9-1.1); PARTIAL THROMBOPLASTIN RATIO 0.9; PROTHROMBIN TIME (PATIENT) 11.5 SECONDS (9.0-12.0)
[2016-08-19] MEDS ORDERED: HEPARIN 25,000 UNIT/500ML D5W 500 ML IV PRN (20:45)
[2016-08-19] MEDS ORDERED: LISINOPRIL 10 MG TAB PO SCH (21:00)
[2016-08-19] MEDS: PIPERACILL/TAZOBAC IV 4.5 GM in DEXTROSE 5% 100ML IV SCH (21:42)
[2016-08-19 22:33] LABS: BLOOD UREA NITROGEN 27 mg/dl (7-18); BUN/CREATININE RATIO 24.5 (10-20); CALCIUM 9.2 mg/dl (8.5-10.1); CARBON DIOXIDE 22 mmol/L (21-32); CHLORIDE 106 mmol/L (98-107); GLUCOSE 115 mg/dl (70-99); SODIUM 139 mmol/L (136-145)
[2016-08-19 22:41] LABS: PHOSPHORUS 3.2 mg/dl (2.5-4.9)
[2016-08-20] VITALS (40 sets, daily range): BP systolic 112–165; BP diastolic 69–92; PULSE 61–82; TEMP 36.4–36.8; O2SAT 93–100
[2016-08-20] MEDS: METOPROLOL TARTRATE 1 MG/ML VIAL IV. SCH ×2 (00:16→06:09)
[2016-08-20 01:06] LABS: URINE APPEARANCE CLEAR (CLEAR); URINE BILIRUBIN NEG (NEG); URINE COLOR YELLOW; URINE NITRITE NEG (NEG); URINE SPECIFIC GRAVITY 1.035 (1.000-1.030); UROBILINOGEN NEG (NEG)
[2016-08-20 01:12] LABS: MANUAL MICROSCOPIC REQUIRED? NO; REVIEW REQ? NO
[2016-08-20] MEDS ORDERED: NITROGLYCERIN/D5W 100 MCG/ML 250 ML IV SCH (01:15)
[2016-08-20] MEDS: INSULIN ASPART 100 UNITS/ML 3 ML PEN SC SCH ×5 (06:00→21:00)
[2016-08-20 06:06] LABS: HEMATOCRIT 42.3 % (42-52); MEAN CELL VOLUME 91.8 fL (80-100); MEAN CORPUSCULAR HEMOGLOBIN 32.5 pg (25-34); MEAN CORPUSCULAR HGB CONC 35.5 g/dl (32-36); MEAN PLATELET VOLUME 12.1 fL (7.4-10.4); PLATELET COUNT 153 K/uL (130-400); RED BLOOD COUNT 4.61 M/uL (4.7-6.1); WHITE BLOOD COUNT 12.12 K/uL (4.8-10.8)
[2016-08-20] MEDS: PIPERACILL/TAZOBAC IV 4.5 GM in DEXTROSE 5% 100ML IV SCH (06:08)
[2016-08-20 06:12] LABS: PARTIAL THROMBOPLASTIN RATIO 1.9
[2016-08-20 06:47] LABS: COMPLETE YES; LYMPH ABS # 1.16 K/uL (1.2-3.4); LYMPHOCYTE % 9.6 %; NEUTROPHILS % 78.2 %
[2016-08-20 07:04] LABS: BLOOD UREA NITROGEN 23 mg/dl (7-18); BUN/CREATININE RATIO 21.1 (10-20); CALCIUM 9.1 mg/dl (8.5-10.1); CARBON DIOXIDE 21 mmol/L (21-32); CHLORIDE 108 mmol/L (98-107); GLUCOSE 117 mg/dl (70-99)
[2016-08-20 07:11] LABS: POTASSIUM 4.1 mmol/L (3.5-5.1); SODIUM 142 mmol/L (136-145)
--- NOTE | 2016-08-20 07:11 | DIAGNOSTIC IMAGING REPORT ---
CHEST ONE VIEW PORTABLE CLINICAL HISTORY: f/u infiltrates pneumonia COMPARISON STUDY: 08/19/2016 FINDINGS: Improving components of congestive failure and/or interstitial edema. Mild decrease in cardiac size. Diaphragms are smooth. IMPRESSION: Improving congestive failure Electronically signed by: Bebo Salazar M.D. 08/20/2016 7:10 AM Dictated Date/Time: 08/20/2016 7:09 AM
[2016-08-20 07:59] LABS: ESTIMATED AVERAGE GLUCOSE 126 mg/dl; HA1C FLAG Normal (Normal)
[2016-08-20] MEDS: ASPIRIN 81 MG ECTAB PO SCH (08:13)
[2016-08-20] MEDS: ATORVASTATIN 40 MG TAB PO SCH (08:14)
[2016-08-20] MEDS: METOPROLOL SUCC 50MG EXT REL TAB PO SCH (08:14)
[2016-08-20] MEDS ORDERED: SODIUM CHLORIDE 0.9% 1000ML 1,000 ML IV SCH ×2 (09:00→14:33)
[2016-08-20] MEDS ORDERED: DC ALL ANTICOAGULANTS ONE (09:00)
[2016-08-20] MEDS ORDERED: METOPROLOL SUCC 50MG EXT REL TAB PO SCH (09:00)
--- NOTE | 2016-08-20 09:30 | Cardiology Consultation ---
Cardiology Consultation Date of Consultation: Aug 20, 2016 Requesting Physician: DATA Attending [employer]: Angel History of Present Illness Patient is a 71 year old male from [place], [place]. Admitted with Pulmonary Edema due to heart failure. History of minimally invasive CABG 2003 in [place]. ? single vessel. ?PUENTE to the LAD. EKG with old LBBB. Non STEMI by enzymes. Currently pain free. Feeling much improved after night of bipap and diuresis. Will need heart cath. 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 History Past Medical History: CABG 2003 No diabetes, kidney disease or strokes Social History: nonsmoker, retired and Family History: Brother with early heart disease Past Medical/Surgical History Problem List: Medical Problems: (1) Ankle fracture (2) SOB (shortness of breath) Review Of Systems General: The patient denies weight change, night sweats, fever, chills. Head: The patient denies headache and prior head trauma. Cardiovascular: The patient denies chest pain or chest discomfort, dyspnea on exertion, palpitations, PND, orthopnea, edema, spontaneous shortness of breath, syncope and near syncope. Pulmonary: The patient denies cough, wheeze, pleurisy, hemoptysis, sputum, and excessive snoring. Gastrointestinal: The patient denies nausea, vomiting, diarrhea, constipation, bloating, hematemesis, hematochezia, and abdominal pain. Skin: The patient denies diaphoresis and rash. Musculoskeletal: The patient denies joint pain, joint swelling, myalgia, back pain, neck pain and prior injuries. Neurological: The patient denies prior stroke and seizures Allergies Coded Allergies: No Known Allergies (Unverified , 12/08/09) Medications Reported Home Medications Medications Dose Route/Sig Max Daily Dose Days Date Category Vitamin D (Cholecalciferol) 1,000 Unit Tab 1,000 Units PO DAILY 08/19/16 Reported Bactroban 2% (Mupirocin) 30 Gm Cr 1 Appln EXT TID 08/19/16 Reported Multivitamin (Multiple Vitamin) 1 Tab Tab 1 Tab PO DAILY 08/19/16 Reported Toprol-Xl (Metoprolol Succinate) 100 Mg Tabcr 100 Mg PO DAILY 08/19/16 Reported Zestril (Lisinopril) 10 Mg Tab 10 Mg PO QPM 08/19/16 Reported Imiquimod 5 % Cre 1 Appln TOP UD 08/19/16 Reported Fish Oil ([place]-3 Fatty Acids) 1,000 Mg Cap 1,000 Mg PO AMPM 08/19/16 Reported Lipitor (Atorvastatin Calcium) 80 Mg Tab 80 Mg PO QPM 08/19/16 Reported Aspirin 325 Mg Tab 325 Mg PO DAILY 08/19/16 Reported Physical Exam Vital Signs (Last 8hrs): Last 8 Hrs Date Time Temp Pulse Resp B/P (MAP) Pulse Ox O2 Delivery O2 Flow Rate FiO2 08/20/16 08:00 36.7 77 20 122/69 (86) 95 Nasal Cannula 2.0 08/20/16 08:00 95 Nasal Cannula 2.0 08/20/16 06:09 82 130/80 08/20/16 06:00 70 22 120/75 (90) 99 08/20/16 05:58 36.4 08/20/16 04:02 100 BiPAP 15.0 35 08/20/16 04:00 82 19 130/80 (97) 96 08/20/16 03:00 69 17 121/80 (94) 99 08/20/16 02:00 72 19 119/76 (90) 99 General Appearance: Alert and Oriented x3. NAD. Head: Normocephalic Atraumatic. Eyes: PERRLA, EOMI, conjunctiva and sclera clear Neck: Supple. No carotid bruits noted. No JVD. No HJD. Respiratory: Breath sounds clear to auscultation bilaterally. No w/r/r. Cardiovascular: Reg rate and rhythm. S1 and S2 noted. No murmurs, rubs, gallops. PMI non displace. Abdomen: Normal bowel sounds, soft nontender. no abdominal bruits. Extremities: No edema, no clubbing or cyanosis. distal pulses 2/4 bilaterally. Neuro: No focal deficits. Psychiatric: Normal affect. Data Last 24 Hours Test 08/19/16 15:58 08/19/16 16:00 08/19/16 16:03 08/19/16 16:08 Bedside Lactic Acid Venous 7.12 mmol/L White Blood Count 8.79 K/uL Red Blood Count 5.48 M/uL Hemoglobin 16.9 g/dL Hematocrit 51.4 % Mean Corpuscular Volume 93.8 fL Mean Corpuscular Hemoglobin 30.8 pg Mean Corpuscular Hemoglobin Concent 32.9 g/dl Platelet Count 193 K/uL Mean Platelet Volume 12.1 fL Neutrophils (%) (Auto) 65.3 % Lymphocytes (%) (Auto) 24.7 % Monocytes (%) (Auto) 7.2 % Eosinophils (%) (Auto) 1.6 % Basophils (%) (Auto) 0.3 % Neutrophils # (Auto) 5.74 K/uL Lymphocytes # (Auto) 2.17 K/uL Monocytes # (Auto) 0.63 K/uL Eosinophils # (Auto) 0.14 K/uL Basophils # (Auto) 0.03 K/uL RDW Standard Deviation 44.1 fL RDW Coefficient of Variation 12.8 % Immature Granulocyte % (Auto) 0.9 % Immature Granulocyte # (Auto) 0.08 K/uL Bedside Blood Gas pH (LAB) 7.15 Bedside Blood Gas pCO2 (LAB) 51 mmHg Bedside Blood Gas pO2 (LAB) 111 mmHg Bedside Blood Gas HCO3 (LAB) 18 meq/L Bedside Blood Gas Total CO2 19 mEq/l Bedside Blood Gas Base Excess (LAB) -11.0 meq/L Bedside Blood Gas O2 Saturation 97.0 % Sodium Level 141 mmol/L Potassium Level mmol/L Chloride Level 106 mmol/L Carbon Dioxide Level 21 mmol/L Anion Gap 14.0 mmol/L 19.0 mmol/L Blood Urea Nitrogen 26 mg/dl Creatinine 1.50 mg/dl Est Creatinine Clear Calc Drug Dose 46.7 ml/min Estimated GFR () 53.5 Estimated GFR (Non- 46.2 BUN/Creatinine Ratio 17.3 Random Glucose 189 mg/dl Calcium Level 9.4 mg/dl Magnesium Level mg/dl Total Bilirubin 0.5 mg/dl Direct Bilirubin mg/dl Aspartate Amino Transf (AST/SGOT) U/L Alanine Aminotransferase (ALT/SGPT) 118 U/L Alkaline Phosphatase 192 U/L Total Creatine Kinase U/L Creatine Kinase MB 2.9 ng/ml Creatine Kinase MB Ratio Total Protein 7.8 gm/dl Albumin 3.9 gm/dl Bedside Hemoglobin 17.0 g/dl Bedside Hematocrit 50 % Bedside Sodium 140 mEq/L Bedside Potassium 3.9 mEq/L Bedside Chloride 105 mEq/L Bedside Total CO2 20 mEq/l Bedside Blood Urea Nitrogen 27 mg/dl Bedside Creatinine 1.3 mg/dl Bedside Glucose (other) 206 mg/dl Bedside Ionized Calcium (Kermit) 1.27 mmol/l Bedside Troponin I 0.070 ng/ml [id number] Natriuretic Peptide 210 pg/ml Test 08/19/16 16:10 08/19/16 17:10 08/19/16 19:49 08/19/16 20:05 Bedside Lactic Acid Venous 6.14 mmol/L Procalcitonin 0.19 ng/ml Bedside Glucose 114 mg/dl Prothrombin Time 11.5 SECONDS Prothromb Time International Ratio 1.1 Activated Partial Thromboplast Time 23.9 SECONDS Partial Thromboplastin Ratio 0.9 Test 08/19/16 22:00 08/19/16 22:09 08/20/16 00:00 08/20/16 00:26 Creatine Kinase MB Ratio Sodium Level 139 mmol/L Potassium Level 4.0 mmol/L Chloride Level 106 mmol/L Carbon Dioxide Level 22 mmol/L Anion Gap 11.0 mmol/L Blood Urea Nitrogen 27 mg/dl Creatinine 1.10 mg/dl Est Creatinine Clear Calc Drug Dose 63.5 ml/min Estimated GFR () 77.9 Estimated GFR (Non- 67.2 BUN/Creatinine Ratio 24.5 Random Glucose 115 mg/dl Lactic Acid Level 1.4 mmol/L Calcium Level 9.2 mg/dl Phosphorus Level 3.2 mg/dl Magnesium Level 2.0 mg/dl Creatine Kinase MB 17.9 ng/ml Troponin I 3.220 ng/ml Urine Color YELLOW Urine Appearance CLEAR Urine pH 5.0 Urine Specific [place] 1.035 Urine Protein NEG Urine Glucose (UA) NEG Urine Ketones TRACE Urine Occult Blood NEG Urine Nitrite NEG Urine Bilirubin NEG Urine Urobilinogen NEG Urine Leukocyte Esterase NEG Bedside Glucose 125 mg/dl Test 08/20/16 05:00 08/20/16 05:32 08/20/16 05:51 08/20/16 08:09 Creatine Kinase MB Ratio White Blood Count 12.12 K/uL Red Blood Count 4.61 M/uL Hemoglobin 15.0 g/dL Hematocrit 42.3 % Mean Corpuscular Volume 91.8 fL Mean Corpuscular Hemoglobin 32.5 pg Mean Corpuscular Hemoglobin Concent 35.5 g/dl Platelet Count 153 K/uL Mean Platelet Volume 12.1 fL RDW Standard Deviation 43.5 fL RDW Coefficient of Variation 13.1 % Neutrophils % (Manual) 78.2 % Lymphocytes % (Manual) 9.6 % Monocytes % (Manual) 12.2 % Neutrophils # (Manual) 9.48 K/uL Total Absolute Neutrophils 9.48 K/uL Lymphocytes # (Manual) 1.16 K/uL Total Absolute Lymphocytes 1.16 K/uL Monocytes # (Manual) 1.48 K/uL Red Blood Cell Morphology Unremarkable Activated Partial Thromboplast Time 50.0 SECONDS Partial Thromboplastin Ratio 1.9 Sodium Level 142 mmol/L Potassium Level 4.1 mmol/L Chloride Level 108 mmol/L Carbon Dioxide Level 21 mmol/L Anion Gap 13.0 mmol/L Blood Urea Nitrogen 23 mg/dl Creatinine 1.10 mg/dl Est Creatinine Clear Calc Drug Dose 53.6 ml/min Estimated GFR () 77.9 Estimated GFR (Non- 67.2 BUN/Creatinine Ratio 21.1 Random Glucose 117 mg/dl Estimated Average Glucose 126 mg/dl Hemoglobin A1c 6.0 % Lactic Acid Level 0.8 mmol/L Calcium Level 9.1 mg/dl Creatine Kinase MB 19.2 ng/ml Troponin I 3.390 ng/ml Random Vancomycin Level 12.4 mcg/ml Bedside Glucose 117 mg/dl Imaging: pulmonary edema EKG:LBBB Assessment & Plan NonSTEMI Plan: heart cath
--- NOTE | 2016-08-20 11:32 | ECHOCARDIOGRAM REPORT ---
*NOTICE TO RECEIVING LIBERTARIAN AGENCY This information is strictly Confidential and protected under [place] law. [place] law prohibits you from making any further disclosure of this information unless further disclosure is expressly permitted by the written consent of the person to whom it pertains or is authorized by law. A general authorization for the release of medical or other information is not sufficient for this purpose. Hospital accepts no responsibility if the information is made available to any other person, INCLUDING THE PATIENT. Interpretation Summary * Name: NICOLE SOTO Study Date: 08/20/2016 08:41 AM BP: 122/69 mmHg * Patient Location: 106 HR: 70 * : 1945 (M/d/yyyy) Gender: Male Height: 65 in * Age: 71 yrs Ethnicity: [place] Weight: 199 lb * Ordering Physician: Juanito Cardoso * Referring Physician: Self, Referred * Performed By: Darby Toscano RDCS * * Reason For Study: CHF * BSA: 2.0 m2 * -- Conclusions -- * The left ventricle is normal in size. * There is mild anterior wall hypokinesis. * There is mild apical wall hypokinesis. * Ejection Fraction = 45-50%. * The right ventricular systolic function is normal. * The left atrial size is normal. * Right atrial size is normal. * No significant valvular pathology. Procedure Details * A complete two-dimensional transthoracic echocardiogram was performed (2D, M-mode, Doppler and color flow Doppler). Left Ventricle * The left ventricle is normal in size. * There is no thrombus. * There is normal left ventricular wall thickness. * Ejection Fraction = 45-50%. * There is mild anterior wall hypokinesis. * There is mild apical wall hypokinesis. Right Ventricle * The right ventricle is normal size. * The right ventricular systolic function is normal. Atria * The left atrial size is normal. * Right atrial size is normal. * The interatrial septum is intact with no evidence for an atrial septal defect. Mitral Valve * The mitral valve leaflets appear thickened, but open well. * There is trace mitral regurgitation. Tricuspid Valve * The tricuspid valve anatomy is normal. * Significant tricuspid regurgitation is absent. Aortic Valve * The aortic valve is tricuspid. The leaflet thickness if normal. There is no aortic stenosis, and no significant insufficiency. * No hemodynamically significant valvular aortic stenosis. * There is no significant aortic regurgitation. Pulmonic Valve * The pulmonic valve is not well seen, but is grossly normal. * There is no significant pulmonary regurgitation. Great Vessels * The aortic root and proximal ascending aorta are normal sized. Pericardium/Pleural * There is no pericardial effusion. MMode 2D Measurements and Calculations IVSd 1.2 cm IVSs 1.6 cm LVIDd 3.8 cm LVIDs 2.9 cm LVPWd 1.1 cm LVPWs 1.5 cm IVS/LVPW 1.1 FS 22.4 % EDV(Teich) 61.5 ml ESV(Teich) 33.3 ml EF(Teich) 45.9 % EDV(cubed) 54.4 ml ESV(cubed) 25.4 ml EF(cubed) 53.4 % % IVS thick 34.3 % % LVPW thick 32.3 % LV mass(C)d 141.5 grams LV mass(C)dI 71.7 grams/m\S\2 LV mass(C)s 157.5 grams LV mass(C)sI 79.8 grams/m\S\2 SV(Teich) 28.3 ml SI(Teich) 14.3 ml/m\S\2 SV(cubed) 29.0 ml SI(cubed) 14.7 ml/m\S\2 LVAd ap4 26.7 cm\S\2 LVLd ap4 8.0 cm EDV(MOD-sp4) 72.8 ml EDV(sp4-el) 75.9 ml LVAs ap4 17.8 cm\S\2 LVLs ap4 6.7 cm ESV(MOD-sp4) 38.6 ml ESV(sp4-el) 40.0 ml EF(MOD-sp4) 46.9 % EF(sp4-el) 47.3 % LVAd ap2 29.5 cm\S\2 LVLd ap2 8.4 cm EDV(MOD-sp2) 85.0 ml EDV(sp2-el) 87.5 ml LVAs ap2 18.4 cm\S\2 LVLs ap2 6.7 cm ESV(MOD-sp2) 42.8 ml ESV(sp2-el) 43.2 ml EF(MOD-sp2) 49.6 % EF(sp2-el) 50.7 % LVLd %diff 5.7 % EDV(MOD-bp) 79.9 ml LVLs %diff -0.52 % ESV(MOD-bp) 40.4 ml EF(MOD-bp) 49.4 % SV(MOD-sp4) 34.1 ml SI(MOD-sp4) 17.3 ml/m\S\2 SV(MOD-sp2) 42.2 ml SI(MOD-sp2) 21.4 ml/m\S\2 SV(MOD-bp) 39.5 ml SI(MOD-bp) 20.0 ml/m\S\2 SV(sp4-el) 35.9 ml SI(sp4-el) 18.2 ml/m\S\2 SV(sp2-el) 44.3 ml SI(sp2-el) 22.4 ml/m\S\2 Doppler Measurements and Calculations MV E max gustavo 74.7 cm/sec MV A max gustavo 86.1 cm/sec MV E/A 0.87 MV dec time 0.23 sec Ao V2 max 139.8 cm/sec Ao max PG 7.8 mmHg Ao max PG (full) 4.9 mmHg LV V1 max PG 2.9 mmHg LV V1 max 84.9 cm/sec TR max gustavo 206.0 cm/sec
--- NOTE | 2016-08-20 13:04 | Progress Note ---
Internal Med Progress Note Date of Service: Aug 20, 2016. Provider Documentation: SUBJECTIVE: The patient was seen and examined Admitted with Acute SOB secondary to Acute Pulmonary Edema Clinically much better today Denies any complaints OBJECTIVE: Vital Signs-as noted below Exam: General-no distress at rest Eyes-normal ENT-normal Neck-supple Lungs-decreased breath sound at the bases,minimal crackles at the bases Heart-Regular,no murmur Abdomen-Benign,no masses,bowel sound present Extremities-No edema Neuro-AAOx3 No focal neuro deficit Lab data as noted below. ASSESSMENT & PLAN: Acute hypoxemic respiratory failure: Secondary to NSTEMI complicated by Acute Pulmonary Edema due to Acute systolic heart failure CTA: negative for PE Received Lasix in ER and this morning Clinically much better Appreciate Cardiology and Steam Tunnel Feeder input ECHO and Cardiac cath today NSTEMI Troponin went up to >3 EKG BBB -nonspecific changes ECHO:: * The left ventricle is normal in size. * There is mild anterior wall hypokinesis. * There is mild apical wall hypokinesis. * Ejection Fraction = 45-50%. * The right ventricular systolic function is normal. * The left atrial size is normal. * Right atrial size is normal. * No significant valvular pathology. ON BB ,Statin and Aspirin Cardiac Cath today Hypertensive Urgency Was on NTG drip, also to help Hypertensive urgency (started en route to Hosp) Discontinued now Clinically better Doubt any Pneumonia Started on IV Vanco and Zosyn Discontinued and started on Oral Levaquin CXR -improved Blood Culture ,Gm positive Cocci in 1 bottle,likely contaminant Will continue IV Vanco for now Hyperglycemia: Likely secondary to stress No history of diabetes per patient Check A1C ISS, accu checks Transient slurred speech and altered mental status: May be due to Hypoxemia Normalized H/O CAD S/P minimally invasive coronary artery bypass grafting surgery 2013 Denies chest pain Trend cardiac enzymes continue home meds As Above H/O hyperlipidemia Continue statins DVT PX: Heparin IV GI Prophylaxis Oral PPI Disposition: Monitor in ICU Vital Signs: Date Time Temp Pulse Resp B/P (MAP) Pulse Ox O2 Delivery O2 Flow Rate FiO2 08/20/16 17:30 67 20 142/82 (102) 93 Room Air 08/20/16 16:30 72 20 143/85 (104) 95 Room Air 08/20/16 16:00 96 Room Air 08/20/16 15:30 36.5 67 20 143/87 (105) 96 Room Air 08/20/16 15:00 36.5 67 20 149/82 (104) 95 Room Air 08/20/16 14:30 36.7 67 18 136/79 (98) 97 Room Air 08/20/16 14:17 36.7 71 145/83 (103) 98 Room Air 08/20/16 14:00 71 16 132/88 (103) 95 Room Air 08/20/16 13:50 73 16 130/77 (94) 95 Room Air 08/20/16 12:00 98 Nasal Cannula 2.0 08/20/16 11:54 36.7 66 20 123/72 (89) 98 Nasal Cannula 2.0 08/20/16 11:48 36.7 66 20 123/72 98 Nasal Cannula 2.0 08/20/16 10:00 61 22 120/70 (87) 97 2.0 08/20/16 08:00 36.7 77 20 122/69 (86) 95 Nasal Cannula 2.0 08/20/16 08:00 95 Nasal Cannula 2.0 08/20/16 06:09 82 130/80 08/20/16 06:00 70 22 120/75 (90) 99 08/20/16 05:58 36.4 08/20/16 04:02 100 BiPAP 15.0 35 08/20/16 04:00 82 19 130/80 (97) 96 08/20/16 03:00 69 17 121/80 (94) 99 08/20/16 02:00 72 19 119/76 (90) 99 08/20/16 01:00 69 17 112/71 (85) 99 08/20/16 00:35 36.8 08/20/16 00:32 100 BiPAP 15.0 35 08/20/16 00:16 76 107/75 08/19/16 23:32 76 99 35 08/19/16 23:00 77 16 107/75 (86) 99 08/19/16 22:00 83 20 114/75 (88) 100 08/19/16 21:00 84 18 109/71 (84) 98 08/19/16 20:34 88 19 126/81 (96) 99 08/19/16 20:00 84 20 98 08/19/16 20:00 100 BiPAP 15.0 35 08/19/16 19:07 105 100 60 08/19/16 19:00 36.8 90 36 100/77 (85) 100 08/19/16 18:49 37.2 94 22 119/82 100 BiPAP Lab Results: Results Past 24 Hours Test 08/19/16 19:49 08/19/16 20:05 08/19/16 22:00 08/19/16 22:09 Range/Units Bedside Glucose 114 70-99 mg/dl Prothrombin Time 11.5 9.0-12.0 SECONDS Prothromb Time International Ratio 1.1 0.9-1.1 Activated Partial Thromboplast Time 23.9 21.0-31.0 SECONDS Partial Thromboplastin Ratio 0.9 Creatine Kinase MB Ratio 0-3.0 Sodium Level 139 136-145 mmol/L Potassium Level 4.0 3.5-5.1 mmol/L Chloride Level 106 98-107 mmol/L Carbon Dioxide Level 22 21-32 mmol/L Anion Gap 11.0 3-11 mmol/L Blood Urea Nitrogen 27 7-18 mg/dl Creatinine 1.10 0.60-1.40 mg/dl Est Creatinine Clear Calc Drug Dose 63.5 ml/min Estimated GFR () 77.9 Estimated GFR (Non- 67.2 BUN/Creatinine Ratio 24.5 10-20 Random Glucose 115 70-99 mg/dl Lactic Acid Level 1.4 0.4-2.0 mmol/L Calcium Level 9.2 8.5-10.1 mg/dl Phosphorus Level 3.2 2.5-4.9 mg/dl Magnesium Level 2.0 1.8-2.4 mg/dl Creatine Kinase MB 17.9 0.5-3.6 ng/ml Troponin I 3.220 0-0.045 ng/ml Test 08/20/16 00:00 08/20/16 00:26 08/20/16 05:00 08/20/16 05:32 Range/Units Urine Color YELLOW Urine Appearance CLEAR CLEAR Urine pH 5.0 4.5-7.5 Urine Specific [place] 1.035 1.000-1.030 Urine Protein NEG NEG Urine Glucose (UA) NEG NEG Urine Ketones TRACE NEG Urine Occult Blood NEG NEG Urine Nitrite NEG NEG Urine Bilirubin NEG NEG Urine Urobilinogen NEG NEG Urine Leukocyte Esterase NEG NEG Bedside Glucose 125 70-99 mg/dl Creatine Kinase MB Ratio 0-3.0 White Blood Count 12.12 4.8-10.8 K/uL Red Blood Count 4.61 4.7-6.1 M/uL Hemoglobin 15.0 14.0-18.0 g/dL Hematocrit 42.3 42-52 % Mean Corpuscular Volume 91.8 80-100 fL Mean Corpuscular Hemoglobin 32.5 25-34 pg Mean Corpuscular Hemoglobin Concent 35.5 32-36 g/dl Platelet Count 153 130-400 K/uL Mean Platelet Volume 12.1 7.4-10.4 fL RDW Standard Deviation 43.5 36.4-46.3 fL RDW Coefficient of Variation 13.1 11.5-14.5 % Neutrophils % (Manual) 78.2 % Lymphocytes % (Manual) 9.6 % Monocytes % (Manual) 12.2 % Neutrophils # (Manual) 9.48 1.4-6.5 K/uL Total Absolute Neutrophils 9.48 1.4-6.5 K/uL Lymphocytes # (Manual) 1.16 1.2-3.4 K/uL Total Absolute Lymphocytes 1.16 1.2-3.4 K/uL Monocytes # (Manual) 1.48 0.11-0.59 K/uL Red Blood Cell Morphology Unremarkable Activated Partial Thromboplast Time 50.0 21.0-31.0 SECONDS Partial Thromboplastin Ratio 1.9 Sodium Level 142 136-145 mmol/L Potassium Level 4.1 3.5-5.1 mmol/L Chloride Level 108 98-107 mmol/L Carbon Dioxide Level 21 21-32 mmol/L Anion Gap 13.0 3-11 mmol/L Blood Urea Nitrogen 23 7-18 mg/dl Creatinine 1.10 0.60-1.40 mg/dl Est Creatinine Clear Calc Drug Dose 53.6 ml/min Estimated GFR () 77.9 Estimated GFR (Non- 67.2 BUN/Creatinine Ratio 21.1 10-20 Random Glucose 117 70-99 mg/dl Estimated Average Glucose 126 mg/dl Hemoglobin A1c 6.0 4.5-5.6 % Lactic Acid Level 0.8 0.4-2.0 mmol/L Calcium Level 9.1 8.5-10.1 mg/dl Creatine Kinase MB 19.2 0.5-3.6 ng/ml Troponin I 3.390 0-0.045 ng/ml Random Vancomycin Level 12.4 mcg/ml Test 08/20/16 05:51 08/20/16 11:41 08/20/16 11:43 08/20/16 14:00 Range/Units Bedside Glucose 117 87 70-99 mg/dl Procalcitonin 3.42 0-0.5 ng/ml Creatine Kinase MB Ratio 0-3.0 Test 08/20/16 16:15 08/20/16 17:30 Range/Units Bedside Glucose 76 70-99 mg/dl Microbiology Results 08/20/16 Gram Stain - Final, Resulted 08/20/16 Sputum Culture, Resulted Pending
[2016-08-20] MEDS ORDERED: FENTANYL CITRATE INJ 50 MCG/1 ML 2 ML VIAL ONE (13:11)
[2016-08-20] MEDS ORDERED: MIDAZOLAM HCL 1 MG/ML 2ML VIAL ONE (13:12)
[2016-08-20] MEDS ORDERED: SODIUM CHLORIDE 0.9% 1000ML 250 ML IV PRN (14:33)
--- NOTE | 2016-08-20 14:44 | Cardiac Catheterization ---
Procedure Note Procedure Date Aug 20, 2016. Pre-Procedure Diagnosis Non STEMI AUC Score 9 Post-Procedure Diagnosis Severe CAD Procedure(s) Performed Coronary Angiography, Left Heart Cath, LV Angiography Bereavement Program Coordinator Dr. Ortiz Nuclear Scientist(s) None Estimated Blood Loss None Medication(s) Versed, Lidocaine 1% Summary of Findings LMT with Ostial LAD and Circ. JUANCHO to LAD Patent. Ninety percent ostial Circ. Seventy percent distal AV groove Circ, unchanged. LV hypokinetic distal anterior wall. Hemodynamics Rest Ao: 122/65 Final Ao: 131/62 LV: 125/21 Recommendations management recommendations (Transfer to higher level facility for intervention) Specimens None Radiation Exposure (mGy) 480 Contrast (mls) 149 Fluids (cc crystalloids) 68 Procedural Complication(s) None Disposition ICU ACC Data Cardiac Status Clinical evaluation leading to the procedure CAD Presntation: Non STEMI Anginal Classification: CCS II Heart Failure: Yes, NYHA Class: CCS III Cardiogenic Shock w/in 24Hrs: No Cardiac Arrest w/in 24Hrs: No Imaging studies past 6 months: Yes Stress studies past 6 months: No Coronary Anatomy Dominant: Right LAD (% Stenosis): Ostial (90), Proximal (70) Circumflex (% Stenosis): Ostial (90), Distal (70) RCA (% Stenosis): Normal Left Ventricular Angiography EF (%): 40 Wall Motion: Anterior (Hypokinetic) Mitral Regurgitation: None Aortography Aortic Regurgitation: None Diagnostic Physician's Name: Hieu Ortiz, DO Status: Urgent Closure Device Percutaneous Entry Location: Femoral Closure Device: Mynx Recommendations: PCI without planned CABG
[2016-08-20] MEDS ORDERED: ACETAMINOPHEN 325 MG TAB PO PRN (14:45)
[2016-08-20] MEDS ORDERED: ATROPINE SULFATE 0.1 MG/ML 5ML SYR IV PRN (14:45)
[2016-08-20] MEDS ORDERED: ONDANSETRON INJ 2 MG/ML 2 ML VIAL IV PRN (14:45)
[2016-08-20] MEDS ORDERED: NURSING VERBAL MED ORDER ONE (15:15)
[2016-08-20] MEDS ORDERED: LEVOFLOXACIN 750 MG TAB PO ONE (17:15)
[2016-08-20] MEDS ORDERED: HEPARIN 25,000 UNIT/500ML D5W 500 ML IV PRN (17:45)
[2016-08-20] MEDS ORDERED: VANCOMYCIN CONSULT ACTIVE PRN (18:15)
[2016-08-20] MEDS ORDERED: VANCOMYCIN INJ 1,350 MG in SODIUM CHLORIDE 0.9% 250ML 250 ML IV SCH (19:00)
[2016-08-20] MEDS ORDERED: PANTOprazole SOD 40 MG TAB PO ONE (19:30)
--- NOTE | 2016-08-20 20:31 | Pharmacy Progress Note ---
Pharmacy Abx Initial Consult Date of Service Aug 20, 2016. Pharmacy Dosing Scope Date of Consult: 08/20/16 Consultation requested by: Dr. Garza Pharmacy is consulted to initiate IV Vancomycin dosing therapy, order appropriate labs and adjust drug dose/frequency. Subjective The patient is a 71 year old male admitted on Aug 19, 2016 at 17:15. Objective Height (Feet): 5 Height (Inches): 5.00 Weight (Kilograms): 67.200 Vital Signs (Past 12Hrs) Vital Signs Past 12 Hours Date Time Temp Pulse Resp B/P (MAP) Pulse Ox O2 Delivery O2 Flow Rate FiO2 08/20/16 19:46 36.6 76 11 135/74 (94) 96 Room Air 08/20/16 19:16 74 22 134/80 (98) 96 Room Air 08/20/16 19:00 72 21 147/77 (100) Room Air 08/20/16 18:30 69 20 137/75 (95) 96 Room Air 08/20/16 17:30 67 20 142/82 (102) 93 Room Air 08/20/16 16:30 72 20 143/85 (104) 95 Room Air 08/20/16 16:00 96 Room Air 08/20/16 15:30 36.5 67 20 143/87 (105) 96 Room Air 08/20/16 15:00 36.5 67 20 149/82 (104) 95 Room Air 08/20/16 14:30 36.7 67 18 136/79 (98) 97 Room Air 08/20/16 14:17 36.7 71 145/83 (103) 98 Room Air 08/20/16 14:00 71 16 132/88 (103) 95 Room Air 08/20/16 13:50 73 16 130/77 (94) 95 Room Air 08/20/16 12:00 98 Nasal Cannula 2.0 08/20/16 11:54 36.7 66 20 123/72 (89) 98 Nasal Cannula 2.0 08/20/16 11:48 36.7 66 20 123/72 98 Nasal Cannula 2.0 08/20/16 10:00 61 22 120/70 (87) 97 2.0 Lab Results (24Hrs) Laboratory Tests (24 Hours) Test 08/20/16 05:32 08/20/16 11:41 Lactic Acid Level 0.8 mmol/L (0.4-2.0) White Blood Count 12.12 K/uL (4.8-10.8) H Red Blood Count 4.61 M/uL (4.7-6.1) L Hemoglobin 15.0 g/dL (14.0-18.0) Hematocrit 42.3 % (42-52) Mean Corpuscular Volume 91.8 fL (80-100) Mean Corpuscular Hemoglobin 32.5 pg (25-34) Mean Corpuscular Hemoglobin Concent 35.5 g/dl (32-36) Platelet Count 153 K/uL (130-400) Mean Platelet Volume 12.1 fL (7.4-10.4) H Procalcitonin 3.42 ng/ml (0-0.5) H Micro Results Date/Time Source Procedure Growth Status 08/19/16 17:59 Blood Blood Culture Pending Received 08/19/16 16:00 Blood Blood Culture - Preliminary Gram Positive Cocci Resulted 08/19/16 00:00 Nasal MRSA DNA Surveillance Screen - Final Specimen Negative for MRSA by DNA Probe Complete 08/20/16 07:50 Sputum Expectorated Sputum Gram Stain - Final Resulted 08/20/16 07:50 Sputum Expectorated Sputum Sputum Culture Pending Resulted Assessment & Plan Assessment 71 year old male admitted with acute respiratory failure/pulmonary edema secondary to NSTEMI, now with gram positive cocci in 1/2 of blood cultures Plan Vancomycin IV * Loading dose: Vancomycin 2gm IV x 1 dose admin'd in ED yesterday (08/19/16) then DC'd as pneumonia not likely * Vancomycin re-ordered today for gram pos cocci in first blood culture--gave Vancomycin 1350mg IV x 1 dose * Goal trough level: 15-20mcg/mL * Estimated half-life ~ 14hr * Maintenance dose: Vancomycin 1gm IV q12h (15mg/kg--of note pt weight 90kg incorrectly recorded on admission, corrected to 67.2kg today) * Trough level ordered for: 08/22/16 0600 dose Pharmacy will continue to follow and will adjust dose/frequency as necessary. Thank you.
[2016-08-21] VITALS (11 sets, daily range): BP systolic 128–166; BP diastolic 76–95; PULSE 57–76; TEMP 36.5–36.7; O2SAT 91–99
[2016-08-21 01:02] LABS: PARTIAL THROMBOPLASTIN RATIO 1.7
[2016-08-21] MEDS ORDERED: HEPARIN IV BOLUS 3,000 UNIT in SYRINGE 0 ML IV ONE (02:45)
[2016-08-21] MEDS ORDERED: METOPROLOL TARTRATE 1 MG/ML VIAL IV STA (05:09)
[2016-08-21 05:49] LABS: HEMATOCRIT 40.6 % (42-52); MEAN CELL VOLUME 92.3 fL (80-100); MEAN CORPUSCULAR HEMOGLOBIN 32.7 pg (25-34); MEAN CORPUSCULAR HGB CONC 35.5 g/dl (32-36); MEAN PLATELET VOLUME 11.9 fL (7.4-10.4); PLATELET COUNT 137 K/uL (130-400); WHITE BLOOD COUNT 7.75 K/uL (4.8-10.8)
[2016-08-21] MEDS ORDERED: VANCOMYCIN INJ 1,000 MG in SODIUM CHLORIDE 0.9% 250ML 250 ML IV SCH (06:00)
[2016-08-21 06:23] LABS: BUN/CREATININE RATIO 14.6 (10-20); CHOLESTEROL/HDL RATIO 2.9; CREATININE 0.88 mg/dl (0.60-1.40); POTASSIUM 4.3 mmol/L (3.5-5.1)
[2016-08-21] MEDS: INSULIN ASPART 100 UNITS/ML 3 ML PEN SC SCH (07:25)
[2016-08-21] MEDS: METOPROLOL SUCC 50MG EXT REL TAB PO SCH (08:07)
[2016-08-21] MEDS: ASPIRIN 81 MG ECTAB PO SCH (08:07)
[2016-08-21] MEDS: ATORVASTATIN 40 MG TAB PO SCH (08:07)
--- NOTE | 2016-08-21 08:12 | Critical Care Progress Note ---
Critical Care Progress Note Date of Service Aug 20, 2016. Delayed entry due to charting air, original note placed on incorrect patient. This note reflects the medical decisions and treatment of 08/20/2016. ICU Day ICU Day Number: [address] Duran Subjective No significant complaint, no chest pain feels much improved compared to yesterday Objective General: Well-nourished well-developed HEENT: Pupils are equally round and reactive to light, no scleral icterus, oral mucosa moist. Neck: No adenopathy, no bruits Heart: regular, no murmurs noted Abdomen: No hepatosplenomegaly, no tenderness to palpation Neuro: CAM assessment is negative Current SOFA Score SOFA Score Response (Comments) Value Platelets (x10) > 150 0 Bilirubin (mg/dL) < 1.2 0 Nelsy Coma Score 15 0 Level of Hypotension No Hypotension 0 Creatinine (mg/dL) < 1.2 0 Total 0 Assessment & Plan Plan: Neuro: Morphine for pain. Continue neuro checks. Pulmonary: Significant improvement with treatments yesterday, doubts pneumonia higher in the differential is acute flash pulmonary edema Cardiovascular: Went to the Academic Vice President with cardiology, concern for worsening disease. Cardiology will attempt to transfer to higher level of care. Infectious disease: The procalcitonin is elevated at 3.42, we will treat with a total of 5 days of Levaquin for possible community-acquired pneumonia. GI: Maintain nothing by mouth status with the exception of medications until after cardiac catheterization. Proton pump inhibitor for GI prophylaxis. When necessary Zofran. Renal: Follow electrolytes and continue diuresis. Appropriate dose medications and avoid nephrotoxins. Endocrine: Sliding scale insulin Heme: Subcutaneous heparin for DVT prophylaxis for now. Anticipate transfer to [facility] where patient had prior procedures completed Consults & Procedures Consultants: Cardiology: Dr. Ortiz Procedures: Cardiac catheterization: 08/20/2016 Data Medications: Current Inpatient Medications Medications (Trade) Dose Ordered Sig/Micheal Route Start Time Stop Time Status Last Admin Dose Admin Acetaminophen (Tylenol Tab) 650 mg Q4H PRN PO 08/19/16 16:30 09/18/16 16:29 Albuterol/ Ipratropium (Duoneb) 3 ml Q6H PRN INH 08/19/16 16:30 09/18/16 16:29 Aspirin (Ecotrin Tab) 81 mg DAILY PO 08/20/16 09:00 09/19/16 08:59 08/21/16 08:07 81 MG Atorvastatin Calcium (Lipitor Tab) 40 mg DAILY PO 08/20/16 09:00 09/19/16 08:59 08/21/16 08:07 40 MG Miscellaneous Information (Consult Glycemic Management Pharmacy) 1 ea UD PRN N/A 08/19/16 17:45 09/18/16 17:44 Glucose (Glucose 40% Gel) 15-30 GRAMS 15 GRAMS... UD PRN PO 08/19/16 17:45 09/18/16 17:44 Glucose (Glucose Chew Tab) 4-8 Tablets 4 Tabl... UD PRN PO 08/19/16 17:45 09/18/16 17:44 Dextrose (Dextrose 50% 50ML Syringe) 25-50ML OF 50% DW IV FOR... UD PRN IV 08/19/16 17:45 09/18/16 17:44 Glucagon (Glucagon Inj) 1 mg UD PRN SQ 08/19/16 17:45 09/18/16 17:44 Ioversol (Optiray 320) 115 ml UD PRN IV 08/19/16 18:45 08/23/16 18:44 Morphine Sulfate (MoRPHine SULFATE INJ) 2 mg Q2H PRN IV 08/19/16 19:30 09/02/16 19:29 Metoprolol Succinate (Toprol Xl Tab) 50 mg DAILY PO 08/20/16 09:00 09/19/16 08:59 08/21/16 08:07 50 MG Nitroglycerin/ Dextrose 250 ml @ 0 mls/hr Q0M IV 08/20/16 01:15 09/19/16 01:14 Sodium Chloride 250 ml @ 999 mls/hr Q16M PRN IV 08/20/16 14:33 09/19/16 14:32 Atropine Sulfate (Atropine Sulfate 0.1MG/Ml Inj) 0.6 mg PRN PRN IV 08/20/16 14:45 09/19/16 14:44 Ondansetron HCl (Zofran Inj) 4 mg Q6H PRN IV 08/20/16 14:45 09/19/16 14:44 Insulin Aspart (novoLOG ASPART) SLIDING SCALE ACHS SC 08/20/16 16:00 09/18/16 17:59 Levofloxacin (Levaquin Tab) 750 mg DAILY@11 PO 08/21/16 11:00 08/23/16 11:01 Heparin Sodium/ Dextrose 500 ml @ 26 mls/hr [id number] PRN IV 08/20/16 17:45 09/19/16 17:44 08/20/16 17:51 23 MLS/HR Vancomycin HCl (Consult) 1 ea UD PRN N/A 08/20/16 18:15 09/19/16 18:14 Pantoprazole Sodium (Protonix Tab) 40 mg QAM PO 08/21/16 09:00 09/20/16 08:59 08/21/16 07:26 40 MG Vancomycin HCl 1000 mg/Sodium Chloride 270 ml @ 125 mls/hr Q12H IV 08/21/16 06:00 09/04/16 05:59 08/21/16 05:43 125 MLS/HR Vital Signs: Date Time Temp Pulse Resp B/P (MAP) Pulse Ox O2 Delivery O2 Flow Rate FiO2 08/21/16 06:24 72 20 156/88 (110) 95 Nasal Cannula 2.0 08/21/16 06:18 61 12 166/92 (116) 96 08/21/16 05:19 57 23 156/92 (113) 96 08/21/16 05:03 69 20 155/80 (105) 99 Nasal Cannula 2.0 08/21/16 05:03 69 20 155/80 (105) 08/21/16 04:00 Nasal Cannula 2.0 08/21/16 04:00 36.5 63 16 163/80 (107) 99 2.0 08/21/16 03:00 68 18 148/85 (106) 99 Nasal Cannula 2.0 08/21/16 02:02 65 20 151/84 (106) 91 Nasal Cannula 2.0 08/21/16 01:31 64 17 137/77 (97) 93 Nasal Cannula 2.0 08/21/16 01:01 62 16 128/76 (93) 98 Nasal Cannula 2.0 08/21/16 00:01 36.5 64 17 129/81 (97) 98 Nasal Cannula 2.0 08/20/16 23:59 Nasal Cannula 2.0 08/20/16 23:45 64 2 138/82 (100) 98 Nasal Cannula 2.0 7/3/17 23:31 70 15 143/74 (97) 98 Nasal Cannula 2.0 08/20/16 23:16 73 16 142/73 (96) 98 Nasal Cannula 2.0 08/20/16 23:01 71 15 138/78 (98) 99 Nasal Cannula 2.0 08/20/16 22:45 74 16 165/82 (109) 98 Nasal Cannula 2.0 08/20/16 22:30 72 17 144/85 (104) 98 Nasal Cannula 2.0 08/20/16 22:16 67 17 157/92 (113) 98 Nasal Cannula 2.0 08/20/16 22:01 71 10 151/81 (104) 99 Nasal Cannula 2.0 08/20/16 22:00 69 6 99 08/20/16 21:31 76 14 149/86 (107) 95 Room Air 08/20/16 21:16 68 22 142/80 (100) 95 Room Air 08/20/16 20:45 75 19 144/84 (104) 95 Room Air 08/20/16 20:30 74 22 145/81 (102) 95 Room Air 08/20/16 20:16 36.6 74 16 119/80 (93) 97 Room Air 08/20/16 20:00 75 18 145/90 (108) 97 Room Air 08/20/16 20:00 96 Room Air 08/20/16 19:46 36.6 76 11 135/74 (94) 96 Room Air 08/20/16 19:16 74 22 134/80 (98) 96 Room Air 08/20/16 19:00 72 21 147/77 (100) Room Air 08/20/16 18:30 69 20 137/75 (95) 96 Room Air 08/20/16 17:30 67 20 142/82 (102) 93 Room Air 08/20/16 16:30 72 20 143/85 (104) 95 Room Air 08/20/16 16:00 96 Room Air 08/20/16 15:30 36.5 67 20 143/87 (105) 96 Room Air 08/20/16 15:00 36.5 67 20 149/82 (104) 95 Room Air 08/20/16 14:30 36.7 67 18 136/79 (98) 97 Room Air 08/20/16 14:17 36.7 71 145/83 (103) 98 Room Air 08/20/16 14:00 71 16 132/88 (103) 95 Room Air 08/20/16 13:50 73 16 130/77 (94) 95 Room Air 08/20/16 12:00 98 Nasal Cannula 2.0 08/20/16 11:54 36.7 66 20 123/72 (89) 98 Nasal Cannula 2.0 08/20/16 11:48 36.7 66 20 123/72 98 Nasal Cannula 2.0 08/20/16 10:00 61 22 120/70 (87) 97 2.0 Laboratory Results: Last 24 Hours Test 08/20/16 11:41 08/20/16 11:43 08/20/16 14:00 08/20/16 16:15 Procalcitonin 3.42 ng/ml Bedside Glucose 87 mg/dl 76 mg/dl Creatine Kinase MB Ratio Test 08/20/16 17:30 08/20/16 20:34 08/21/16 00:32 08/21/16 05:32 Creatine Kinase MB 9.6 ng/ml Troponin I 2.020 ng/ml Bedside Glucose 119 mg/dl Activated Partial Thromboplast Time 42.9 SECONDS Partial Thromboplastin Ratio 1.7 White Blood Count 7.75 K/uL Red Blood Count 4.40 M/uL Hemoglobin 14.4 g/dL Hematocrit 40.6 % Mean Corpuscular Volume 92.3 fL Mean Corpuscular Hemoglobin 32.7 pg Mean Corpuscular Hemoglobin Concent 35.5 g/dl RDW Standard Deviation 44.8 fL RDW Coefficient of Variation 13.2 % Platelet Count 137 K/uL Mean Platelet Volume 11.9 fL Sodium Level 142 mmol/L Potassium Level 4.3 mmol/L Chloride Level 110 mmol/L Carbon Dioxide Level 24 mmol/L Anion Gap 8.0 mmol/L Blood Urea Nitrogen 13 mg/dl Creatinine 0.88 mg/dl Est Creatinine Clear Calc Drug Dose 67.0 ml/min Estimated GFR () 100.2 Estimated GFR (Non- 86.4 BUN/Creatinine Ratio 14.6 Random Glucose 89 mg/dl Calcium Level 9.0 mg/dl Phosphorus Level 2.0 mg/dl Magnesium Level 2.0 mg/dl Total Bilirubin 0.7 mg/dl Direct Bilirubin 0.2 mg/dl Aspartate Amino Transf (AST/SGOT) 36 U/L Alanine Aminotransferase (ALT/SGPT) 66 U/L Alkaline Phosphatase 92 U/L Total Protein 6.2 gm/dl Albumin 3.1 gm/dl Triglycerides Level 54 mg/dl Cholesterol Level 120 mg/dl HDL Cholesterol 41 mg/dl LDL Cholesterol, Calculated 68 mg/dl VLDL Cholesterol, Calculated 11 mg/dl Cholesterol/HDL Ratio 2.9 Test 08/21/16 07:58
[2016-08-21] MEDS ORDERED: POT PHOSPHATE MONOBASIC W/ SOD TAB PO ONE (08:30)
[2016-08-21 08:42] LABS: PARTIAL THROMBOPLASTIN RATIO 2.5
[2016-08-21] MEDS ORDERED: PANTOprazole SOD 40 MG TAB PO SCH (09:00)
[2016-08-21] MEDS ORDERED: LEVOFLOXACIN 750 MG TAB PO SCH (11:00)
--- NOTE | 2016-08-21 11:06 | Discharge Summary ---
Discharge Summary Date of Service Aug 21, 2016. Discharge Summary Admission Date: Aug 19, 2016 at 17:15 Discharge Disposition: Acute care facility Principal Diagnosis: NSTEMI, Respiratory failure, Acute CHF Admission Information HPI (per Admitting provider): Patient is a 71 yr male with PMH of CAD S/P ? CABG (in 2013), HLP, HTN presents for evaluation of Altered mental status and SOB. Patient reports he is doing well until this morning and developed sudden onset of shortness of breath and cough associated with Altered mental status while he was kayaking. EMS found him to be hypoxic and tachycardic/Hypertensive and started him on NTG drip and CPAP enroute to the hospital. EMS also noted the patient to be pale, diaphoretic , and cold to touch. Patient reports he developed sudden onset of SOB and a "foamy" cough. Also reports transient slurry of speech and stumbled to walk per family. He denies any history of chest pain/discomfort, fever, chills, palpitations, dizziness, nausea, vomiting, abd pain, change in bowel/bladder habits, history of LOC, fall, trauma, headache, blurry vision, weakness, numbness, tingling, seizure like activity, incontinence. Also denies any cough prior to today or similar episode previously. CXR was suggestive of CHF, interstitial edema and possible pneumonia. Lactic acid is elevated. 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 JUANCHO to LAD Patent. Ninety percent ostial Circ. Seventy percent distal AV groove Circ, unchanged. LV hypokinetic distal anterior wall. NSTEMI: -Troponin trended up to >3 -EKG BBB: nonspecific changes -ECHO report: * The left ventricle is normal in size. * There is mild anterior wall hypokinesis. * There is mild apical wall hypokinesis. * Ejection Fraction = 45-50%. * The right ventricular systolic function is normal. * The left atrial size is normal. * Right atrial size is normal. * No significant valvular pathology. -continued on BB, statin, aspirin -Cardiac Cath as reported above; due to concern for worsening condition and need for higher level care, the patient was transferred out of the ICU this AM to [facility] Hypertensive Urgency: -was on NTG drip, has since been off -better controlled BP Questionable Pneumonia: -was given IV Vanco and Zosyn -now on Oral Levaquin -CXR: improved -Blood Cultures, gram positive Cocci in 1 bottle,likely contaminant -was continued on IV Vanco for now pending final cultures Hyperglycemia: -Likely secondary to stress -No history of diabetes per patient -HbA1C: 6.0% -continue ISS, BSG Transient slurred speech and altered mental status: -likely encephalopathy due to Hypoxemia -returned to baseline CAD: S/P minimally invasive coronary artery bypass grafting surgery 2013 -denies chest pain -cardiac enzymes -continue home meds -ASA, BB, statin continued Hyperlipidemia: -continue current meds DVT Prophylaxis: -Heparin IV GI Prophylaxis -Oral PPI PHYSICAL EXAM ON DAY OF DISCHARGE: Patient was transferred to facility prior to being examined Total time spent on discharge = 35 This includes examination of the patient, discharge planning, medication reconciliation, and communication with other providers. Discharge Instructions Transfer to facility
[2016-08-22] MEDS ORDERED: VANCOMYCIN TROUGH SCH (05:30)
== END 2016-08-21 09:30 | disposition short-term general hospital (02) | DRG 280 ==
LOC: EDBD 15:40 → C.ED 15:41 → C.MSICU 17:15 → CANBEDREQ 17:25 → CANRESERV 17:34 → ENRESERV 17:34
PROVIDERS: ADMIT Internal Medicine; ATTEND Internal Medicine
PROC: 4A023N7 Measurement of Cardiac Sampling and Pressure, Left Heart, Percutaneous Approach (ICD-10-PCS; principal; 2016-08-20 13:02)
PROC: B2111ZZ Fluoroscopy of Multiple Coronary Arteries using Low Osmolar Contrast (ICD-10-PCS; principal; 2016-08-20 13:02)
PROC: B2151ZZ Fluoroscopy of Left Heart using Low Osmolar Contrast (ICD-10-PCS; principal; 2016-08-20 13:02)
DX: I21.4 Non-ST elevation (NSTEMI) myocardial infarction (principal); J96.01 Acute respiratory failure with hypoxia; I50.21 Acute systolic (congestive) heart failure; G93.40 Encephalopathy, unspecified; J81.0 Acute pulmonary edema; I16.0 Hypertensive urgency; R73.9 Hyperglycemia, unspecified; E78.5 Hyperlipidemia, unspecified; R47.81 Slurred speech; R41.82 Altered mental status, unspecified; I25.10 Atherosclerotic heart disease of native coronary artery without angina pectoris; Z95.1 Presence of aortocoronary bypass graft; Z82.49 Family history of ischemic heart disease and other diseases of the circulatory system; Z79.82 Long term (current) use of aspirin; Z79.899 Other long term (current) drug therapy